=== PATIENT | female | born 1985 | race Native Hawaiian/Other Pacific Islander ===

== ENCOUNTER 2016-11-15 16:39 | Emergency (ER) | payer BC ==
[~2016-11-15] VITALS: Ht 162.6 cm; Wt 71.7 kg
[2016-11-15 17:44] VITALS: BP 135/80; TEMP 99.2
== END 2016-11-15 17:53 | disposition home or self-care (01) ==
LOC: ED 16:39
DX: S70.311A Abrasion, right thigh, initial encounter (principal); W54.0XXA Bitten by dog, initial encounter
CPT/HCPCS: 90715; 96372; 99282

== ENCOUNTER 2017-01-29 17:39 | Emergency (ER) | payer BC ==
[~2017-01-29] VITALS: Ht 162.6 cm; Wt 71.7 kg
[2017-01-29 19:01] LABS: PLATELET COUNT 168 K/uL (152-353)
[2017-01-29 19:08] LABS: POTASSIUM 3.7 mmol/L (3.6-5.2); SODIUM 135 mmol/L (136-145)
[2017-01-29 19:48] VITALS: BP 133/86; TEMP 98.1
== END 2017-01-29 20:00 | disposition home or self-care (01) ==
LOC: ED 17:39
PROVIDERS: Specialist
DX: R11.2 Nausea with vomiting, unspecified (principal); T78.1XXA Other adverse food reactions, not elsewhere classified, initial encounter
CPT/HCPCS: 36415; 80048; 85027; 96372; 99283

== ENCOUNTER 2018-09-13 12:45 | Outpatient (CLI) | payer OTHER | END 2018-09-13 22:54 | disposition home or self-care (01) | LOC: RAD 12:45 | DX: M54.2 Cervicalgia (principal); M54.6 Pain in thoracic spine ==

== ENCOUNTER 2019-04-19 09:43 | Outpatient (CLI) | payer OTHER | END 2019-04-19 19:02 | disposition home or self-care (01) | LOC: MRI 09:43 | DX: M54.16 Radiculopathy, lumbar region (principal) | CPT/HCPCS: A9576 ==